=== PATIENT | male | born 1965 | race African-American/Black ===

== ENCOUNTER 2019-05-18 14:00 | Inpatient (IN) | payer BC ==
[~2019-05-18] VITALS: Ht 188 cm; Wt 88.0 kg
--- NOTE | 2019-05-18 14:31 | NUR ---
SE RECIBE PTE EL CUAL REFIERE PRESENTAR YADIRA DOLOR EN AMBOS HOMBROS DESDE HACE 2 SEMANAS Y EN EL ROBBIE DE HOY DOLOR SE CUMMINGS CONCENTRADO EN EL LADO DERECHO DEL CUERPO Y MANO DERECHA.
--- NOTE | 2019-05-18 16:11 | NUR ---
PACIENTE ORIENTADO SOBRE EL [place]. SE EXTRAEN MUESTRAS DE SARAH BAJO MEDIDAS ASEPTICAS SE ROTULAN Y ENVIAN AL LABORATORIO. SE ADMINISTRA MEDICAMENTO ROLANDO ORDEN MEDICA BAJO MEDIDAS ASEPTICAS EN GLUTEO DERECHO. SE REALIZA EKG EVALUADO POR EL DR. Yani LU
[2019-05-20] MEDS ORDERED: LIPITOR40 MG PO (09:09)
== END 2019-05-20 09:27 | disposition home or self-care (01) | DRG 69 ==
LOC: ER 14:00 → SURH 22:49 → MEDJ 23:47
PROVIDERS: ADMIT Student in an Organized Health Care Education/Training Program
PROC: B020ZZZ Computerized Tomography (CT Scan) of Brain (ICD-10-PCS; principal; 2019-05-18)
PROC: B246ZZZ Ultrasonography of Right and Left Heart (ICD-10-PCS; 2019-05-18)
PROC: B348ZZZ Ultrasonography of Bilateral Internal Carotid Arteries (ICD-10-PCS; 2019-05-18)
PROC: B345ZZZ Ultrasonography of Bilateral Common Carotid Arteries (ICD-10-PCS; 2019-05-18)
PROC: B030ZZZ Magnetic Resonance Imaging (MRI) of Brain (ICD-10-PCS; 2019-05-18)
DX: I67.82 Cerebral ischemia (principal); I63.81 Other cerebral infarction due to occlusion or stenosis of small artery
CPT/HCPCS: 70544